=== PATIENT | female | born 1955 | race Caucasian/White ===

== ENCOUNTER → 2022-04-23 09:49 | Outpatient (BNVA) | payer MEDICARE, SELFPAY | PROVIDERS: PCP Internal Medicine; Visit Provider Psychiatry & Neurology Psychiatry | DX: F41.0 Panic disorder [episodic paroxysmal anxiety] (principal); F32.5 Major depressive disorder, single episode, in full remission; F98.8 Other specified behavioral and emotional disorders with onset usually occurring in childhood and adolescence; F13.20 Sedative, hypnotic or anxiolytic dependence, uncomplicated; I10 Essential (primary) hypertension; Z79.899 Other long term (current) drug therapy | CPT/HCPCS: 90833; 99212 ==

== ENCOUNTER → 2022-09-04 12:50 | Outpatient (BNVA) | payer MEDICARE, SELFPAY | PROVIDERS: PCP Internal Medicine; Visit Provider Psychiatry & Neurology Psychiatry | DX: F98.8 Other specified behavioral and emotional disorders with onset usually occurring in childhood and adolescence (principal); F32.5 Major depressive disorder, single episode, in full remission | CPT/HCPCS: 90833; 99212 ==

== ENCOUNTER → 2022-12-04 13:18 | Outpatient (BNVA) | payer MEDICARE, SELFPAY | PROVIDERS: PCP Internal Medicine; Visit Provider Psychiatry & Neurology Psychiatry | DX: F98.8 Other specified behavioral and emotional disorders with onset usually occurring in childhood and adolescence (principal); F32.5 Major depressive disorder, single episode, in full remission; F41.0 Panic disorder [episodic paroxysmal anxiety]; I10 Essential (primary) hypertension | CPT/HCPCS: 90833; 99212 ==

== ENCOUNTER 2023-08-13 13:12 | Outpatient (AMB) | payer MEDICARE, SELFPAY ==
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
== END 2023-08-13 14:52 | disposition home or self-care (01) ==
LOC: HO.HOP 13:13
PROVIDERS: PCP Internal Medicine; Visit Provider Psychiatry & Neurology Psychiatry
DX: F32.5 Major depressive disorder, single episode, in full remission (principal); F41.0 Panic disorder [episodic paroxysmal anxiety]; F98.8 Other specified behavioral and emotional disorders with onset usually occurring in childhood and adolescence
CPT/HCPCS: 99214

== ENCOUNTER → 2023-08-13 13:12 | Outpatient (BNVA) | payer MEDICARE, SELFPAY | PROVIDERS: PCP Internal Medicine; Visit Provider Psychiatry & Neurology Psychiatry | DX: F32.5 Major depressive disorder, single episode, in full remission (principal); F41.0 Panic disorder [episodic paroxysmal anxiety]; F98.8 Other specified behavioral and emotional disorders with onset usually occurring in childhood and adolescence | CPT/HCPCS: 99212 ==

== ENCOUNTER 2023-11-23 14:01 | Outpatient (AMB) | payer MEDICARE, SELFPAY ==
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
== END 2023-11-23 14:47 | disposition home or self-care (01) ==
LOC: HO.HOP 14:01
PROVIDERS: PCP Internal Medicine; Visit Provider Psychiatry & Neurology Psychiatry
DX: F32.5 Major depressive disorder, single episode, in full remission (principal); F41.0 Panic disorder [episodic paroxysmal anxiety]; F98.8 Other specified behavioral and emotional disorders with onset usually occurring in childhood and adolescence
CPT/HCPCS: 90833; 99213

== ENCOUNTER → 2023-11-23 14:01 | Outpatient (BNVA) | payer MEDICARE, SELFPAY | PROVIDERS: PCP Internal Medicine; Visit Provider Psychiatry & Neurology Psychiatry | DX: F32.5 Major depressive disorder, single episode, in full remission (principal); F41.0 Panic disorder [episodic paroxysmal anxiety]; F98.8 Other specified behavioral and emotional disorders with onset usually occurring in childhood and adolescence | CPT/HCPCS: 99212 ==

== ENCOUNTER 2024-03-07 12:50 | Outpatient (AMB) | payer MEDICARE, SELFPAY ==
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
== END 2024-03-07 17:32 | disposition home or self-care (01) ==
LOC: HO.HOP 12:50
PROVIDERS: PCP Internal Medicine; Visit Provider Psychiatry & Neurology Psychiatry
DX: F41.0 Panic disorder [episodic paroxysmal anxiety] (principal); F32.5 Major depressive disorder, single episode, in full remission; F98.8 Other specified behavioral and emotional disorders with onset usually occurring in childhood and adolescence
CPT/HCPCS: 99214

== ENCOUNTER → 2024-03-07 12:50 | Outpatient (BNVA) | payer MEDICARE, SELFPAY | PROVIDERS: PCP Internal Medicine; Visit Provider Psychiatry & Neurology Psychiatry | DX: F41.0 Panic disorder [episodic paroxysmal anxiety] (principal); F32.5 Major depressive disorder, single episode, in full remission; F98.8 Other specified behavioral and emotional disorders with onset usually occurring in childhood and adolescence; Z71.89 Other specified counseling | CPT/HCPCS: 99212 ==

== ENCOUNTER 2024-07-20 13:07 | Outpatient (AMB) | payer MEDICARE, SELFPAY ==
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
--- OUTSIDE RECORDS SUMMARY | 2024-07-20 14:29 | XMS_ITS | Clinical Summary ---
Author Organization [facility] Address [address] [place] [address] Care Team Providers Care Substitute Bus Driver Name Role Phone Annalisa Kendrick MD Primary Care Prov ider Allergies Active Allergy Reactions Criticality Noted Date Comments Adalimumab 08/21/2015 Amoxicillin Hives 02/16/2019 Codeine 08/20/2015 Hives Duloxetine Hcl 08/20/2015 vomiting Latex Medium 11/17/2017 Lisinopril 08/20/2015 Dizzy Metoprolol 08/20/2015 Upset stomach and vomiting Naproxen 08/20/2015 Nausea Pregabalin 08/20/2015 vomiting Verapamil Hives 02/16/2019 Medications FLUoxetine (PROzac) 20 mg capsule Take 20 mg by mouth daily. 09/02/2021 Active gabapentin (NEURONTIN) 600 mg tablet Take 1 tablet (600 mg total) by mouth 1 (one) time each day in the evening. 09/26/2021 Active methylphenidate (RITALIN) 5 mg tablet Take 1 Tab by mouth 2 times daily. 07/22/2019 Active omega-3 acid ethyl esters (LOVAZA) 1 gram capsule Take 3 Caps by mouth daily. 10/16/2017 Active clonazePAM (KlonoPIN) 0.5 mg tablet Take 0.5 mg by mouth 3 times daily. 1 tab a.m., 1 tab, noon and 1.5 tab evening- [facility]. Active hydroCHLOROthiaz gladys (HYDRODIURIL) 25 mg tablet TAKE 1 TABLET BY MOUTH EVERY DAY 90 tablet 05/11/2024 Active Active Problems Problem Noted Date Diagnosed Date Attention deficit disorder 10/02/2021 RLS (restless legs syndrome) 10/02/2021 Hypertriglyceridemia 10/16/2017 Obesity (BMI 30.0-34.9) 10/14/2017 Fibromyalgia 08/21/2015 Hypertension 08/21/2015 Irritable bowel syndrome (IBS) 08/21/2015 Anxiety 08/20/2015 Immunizations Name Administration Dates Next Due Pfizer SARS-CoV-2 COVID-19, mRNA, LNP-S, preservative free 07/27/2020,07/05/2020 Surgical History Surgery Date Site/Laterality Comments OTHER SURGICAL HISTORY 2004 PROCEDURE: [place] TOTAL ABDOMINAL HYSTERECT W/WO RMVL TUBE OVARY Family History Medical History Relation Name Comments Hypertension Father Diabetes Mother Relation Name Status Comments Father Mother Social History Tobacco Use Types Packs/Day Years Used Date Smoking Tobacco: Never Smokeless Tobacco: Never Alcohol Use Standard Drinks/Week Comments No 0 (1 standard drink = 0.6 oz pur e alcohol) Comments Unknown Sex and Gender Information Value Date Recorded Sex Assigned at Not on file Legal Sex Female 10:55 AM EST Gender Identity Not on file Sexual Orientation Not on file Obstetrics History Plan of Treatment Upcoming Encounters Date Type Department Care Team (Late st Contact Info) Description 09/19/2024 2:00 PM EDT Office Visit Adult Medicine - [place] [address] [place] [address] Annalisa Kendrick MD [address] [place] [id number] Health Maintenance Due Date Last Done Comments Breast Cancer Screening 1955 DTaP,Tdap,and Td Vaccines (1 - Tdap) 02/07/1975 Zoster Vaccines (1 of 2) 02/07/2006 Pneumococcal Vaccine: 50+ Years (1 of 1 - PCV) 02/07/2021 Colorectal Cancer Screening: Colonoscopy 05/06/2022 Depression Screening 05/06/2022 Falls Risk Assessment 05/06/2022 Hepatitis C Screening 05/06/2022 Osteoporosis Screening (Bone Density Screening) 05/06/2022 Social Influencers of Health Screening 05/06/2022 Hypertension/CHF/CAD Annual BMP Blood Test 05/15/2022 10/14/2017 Cholesterol Screening (Lipid Panel) 10/14/2022 10/14/2017 COVID-19 Vaccine (3 - 2023-2 5 season) 2024 07/27/2020, 07/05/2020 Influenza Vaccine (#1) 2024 RSV Immunization Patients 60 + Years Old (1 - 1-dose 75+ series) 02/07/2031 HIB Vaccines Aged Out No longer eligi ble based on patient's age to complete this topic HPV Vaccines Aged Out No longer eligi ble based on patient's age to complete this topic Hepatitis A Vaccines Aged Out No long er eligible based on patient's age to complete this topic Hepatitis B Vaccines Aged Out No long er eligible based on patient's age to complete this topic IPV Vaccines Aged Out No longer eligi ble based on patient's age to complete this topic MMR Vaccines Aged Out No longer eligi ble based on patient's age to complete this topic Meningococcal ACWY Vaccine Aged Out N o longer eligible based on patient's age to complete this topic RSV Immunization Patients Under 20 months Aged Out No longer eligible b ased on patient's age to complete this topic Varicella Vaccines Aged Out No longer eligible based on patient's age to complete this topic Procedures Procedure Name Priority Date/Time Associated Diagnosis Comments ANNUAL BMP BLOOD TEST Routine 10/14/2017 LIPID PANEL Routine 10/14/2017 from Last 3 Months or Most Recently Relevant to Health Maintenance Results * Annual BMP Blood Test (10/14/2017) [facility] Annual BMP Blood Test abstract Historical Provider HEALTH MAINTENANCE Final Result * (ABNORMAL) Lipid panel (10/14/2017) [facility] LDL/HDL Ratio 6(A) 0 - 4 Triglycerides 592(A) 0 - 150 mg/dL Cholesterol 300(A) 0 - 200 mg/dL HDL 47 >=40 mg/dL LDL Cholesterol 0 mg/dL Comment:Comment: If Tr iglyceride value is =>500, LDL is not meaningful Blood Venous blood specimen / Unknown Historical Provider LAB BLOOD ORDERABLES Aleida l Result from Last 3 Months or Most Recently Relevant to Health Maintenance Care Teams Substitute Bus Driver Relationship Specialty Start Date End Date Annalisa Kendrick MD PCP - General Internal Medicine 05/14/16
== END 2024-07-20 13:35 | disposition home or self-care (01) ==
LOC: HO.HOP 13:07
PROVIDERS: PCP Internal Medicine; Visit Provider Psychiatry & Neurology Psychiatry
DX: F41.0 Panic disorder [episodic paroxysmal anxiety] (principal); F32.5 Major depressive disorder, single episode, in full remission; F98.8 Other specified behavioral and emotional disorders with onset usually occurring in childhood and adolescence
CPT/HCPCS: 99214

== ENCOUNTER → 2024-07-20 13:07 | Outpatient (BNVA) | payer MEDICARE, SELFPAY | PROVIDERS: PCP Internal Medicine; Visit Provider Psychiatry & Neurology Psychiatry | DX: F41.0 Panic disorder [episodic paroxysmal anxiety] (principal); F32.5 Major depressive disorder, single episode, in full remission; F98.8 Other specified behavioral and emotional disorders with onset usually occurring in childhood and adolescence | CPT/HCPCS: 99212 ==

== ENCOUNTER 2024-10-12 12:40 | Outpatient (AMB) | payer MEDICARE, SELFPAY ==
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
== END 2024-10-12 14:14 | disposition home or self-care (01) ==
LOC: HO.HOP 12:40
PROVIDERS: PCP Internal Medicine; Visit Provider Psychiatry & Neurology Psychiatry
DX: F41.0 Panic disorder [episodic paroxysmal anxiety] (principal); F32.5 Major depressive disorder, single episode, in full remission; F98.8 Other specified behavioral and emotional disorders with onset usually occurring in childhood and adolescence
CPT/HCPCS: 99214

== ENCOUNTER → 2024-10-12 12:40 | Outpatient (BNVA) | payer MEDICARE, SELFPAY | PROVIDERS: PCP Internal Medicine; Visit Provider Psychiatry & Neurology Psychiatry | DX: F41.0 Panic disorder [episodic paroxysmal anxiety] (principal); F32.5 Major depressive disorder, single episode, in full remission; F98.8 Other specified behavioral and emotional disorders with onset usually occurring in childhood and adolescence | CPT/HCPCS: 99212 ==

== ENCOUNTER 2025-02-16 14:19 | Outpatient (AMB) | payer MEDICARE, SELFPAY ==
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
== END 2025-02-16 15:23 | disposition home or self-care (01) ==
LOC: HO.HOP 14:19
PROVIDERS: PCP Internal Medicine; Visit Provider Psychiatry & Neurology Psychiatry
DX: F41.0 Panic disorder [episodic paroxysmal anxiety] (principal); F98.8 Other specified behavioral and emotional disorders with onset usually occurring in childhood and adolescence; F32.5 Major depressive disorder, single episode, in full remission
CPT/HCPCS: 99214

== ENCOUNTER → 2025-02-16 14:19 | Outpatient (BNVA) | payer MEDICARE, SELFPAY | PROVIDERS: PCP Internal Medicine; Visit Provider Psychiatry & Neurology Psychiatry | DX: F32.5 Major depressive disorder, single episode, in full remission (principal); F98.8 Other specified behavioral and emotional disorders with onset usually occurring in childhood and adolescence; F41.0 Panic disorder [episodic paroxysmal anxiety] | CPT/HCPCS: 99212 ==